=== PATIENT | female | born 1960 | race Hispanic/Latino ===

== ENCOUNTER 2018-03-30 09:19 | Emergency (ER) | payer SELFPAY | END 2018-03-30 10:01 | disposition home or self-care (01) | LOC: MADERS 09:19 | DX: L30.9 Dermatitis, unspecified (principal) | CPT/HCPCS: 99282 ==

== ENCOUNTER 2020-12-10 11:08 | Emergency (ER) | payer SELFPAY ==
[2020-12-10] MEDS ORDERED: Tetracaine 0.5% PF 4 ML BOT ONE (11:41)
[2020-12-10] MEDS ORDERED: Tenecteplase 50 MG - STEMI KIT ONE (11:41)
[2020-12-10] MEDS ORDERED: Fluorescein Opthalmic Strip ONE (11:41)
== END 2020-12-10 12:00 | disposition home or self-care (01) ==
LOC: MADERS 11:08
DX: H11.31 Conjunctival hemorrhage, right eye (principal)
CPT/HCPCS: 99282; J3101